=== PATIENT | male | born 1935 | race Caucasian/White ===

== ENCOUNTER 2017-12-09 11:55 | Emergency (ER) | payer MEDICARE ==
[2017-12-09] MEDS ORDERED: Dexamethasone 4 mg/ml Vial ONE (13:34)
[2017-12-09] MEDS ORDERED: Acetaminophen 500 MG TAB ONE ×2 (13:34→13:35)
[2017-12-09 13:42] LABS: #Eosinphils 0.4 thou/uL (0.0-0.7); #Lymphocytes 1.7 thou/uL (1.20-3.40); #Monocytes 1.1 thou/uL (0.11-0.59); %Basophils 0.4 % (0.0-1.0); %Lymphocytes 14.9 % (21.0-51.0); %Monocytes 9.8 % (0.0-10.0); %Neutrophils 70.9 % (42.0-75.0); Hemoglobin 13.8 g/dL (14.0-18.0); Mean Corpuscular HGB CONC 33.6 g/dL (32.0-36.0); Mean Corpuscular Hemoglobin 32.3 pg (27.0-31.0); Mean Corpuscular Volume 96.3 fl (80.0-94.0); Mean Platelet Volume 8.7 fL (7.4-10.4); Platelet Count 149 thou/uL (130-400); RBC Distribution Width 12.1 % (11.5-14.5); Red Blood Cell (RBC) Count 4.26 mill/uL (4.70-6.10); White Blood Cell (WBC) Count 11.3 thou/uL (4.8-10.8)
[2017-12-09 14:09] LABS: Digoxin 0.97 ng/mL (0.8-2.0)
[2017-12-09 14:12] LABS: ALT (SGPT) 17 U/L (8-55); AST (SGOT) 25 U/L (5-34); Albumin 4.3 g/dL (3.4-4.8); Alkaline Phosphatase 38 U/L (40-150); Anion Gap 14 mmol/L (10-20); BUN (Urea Nitrogen) 16 mg/dL (8.4-25.7); Bilirubin, Total 1.1 mg/dL (0.2-1.2); Calc. Creatinine Clearance 0 mL/min (70-130); Calcium 9.3 mg/dL (7.8-10.44); Carbon Dioxide 24 mmol/L (23-31); Chloride 107 mmol/L (98-107); Estimated GFR-MDRD 43; Globulin 2.6 g/dL (2.4-3.5); Glucose 104 mg/dL (83-110); Lipase 37 U/L (8-78); Potassium 4.6 mmol/L (3.5-5.1); Protein, Total 6.9 g/dL (5.8-8.1); Sodium 140 mmol/L (136-145)
--- NOTE | 2017-12-09 14:14 | RAD ---
PA VIEW CHEST AP AND OBLIQUE VIEWS RIGHT RIBS: Date: 12/09/17 HISTORY: Fall right rib pain FINDINGS: Frontal view chest, as well as AP and oblique views of right ribs obtained. There is ectasia of the a leon. The lungs are well aerated. No evidence of pneumothorax seen. No evidence of right rib fracture s seen. No evidence of hemothorax seen. IMPRESSION: Unremarkable PA view chest, and AP and oblique views right ribs. POS: [facility]
--- NOTE | 2017-12-09 14:17 | RAD ---
3 VIEWS THORACIC SPINE: Date: 12/09/17 HISTORY: Back pain. FINDINGS: AP, lateral, and swimmer's view of thoracic spine obtained. The thoracic spine is unremarkable. No ev idence of acute thoracic spine fractures or bony lesions seen. Discs are well maintained. No evidence of laure or retrolisthesis seen. IMPRESSION: Normal 3 views thoracic spine. POS: [facility]
[2017-12-09 15:01] LABS: Bilirubin Negative (Negative); Blood, Urine Negative (Negative); Clarity CLOUDY (Clear); Glucose, Urine (Dipstick) Negative (Negative); Leukocyte Negative (Negative); Nitrite Negative (Negative); Protein, Urine (Dipstick) Negative (Neg-Trace); Specific Gravity, Urine 1.018 (1.002-1.036); Urobilinogen 0.2 mg/dL (0.2-1.0); pH, Urine 7.5 (5.0-9.0)
== END 2017-12-09 15:24 | disposition home or self-care (01) ==
LOC: ERS 11:55
DX: M54.6 Pain in thoracic spine (principal); I25.10 Atherosclerotic heart disease of native coronary artery without angina pectoris; I25.2 Old myocardial infarction; E78.5 Hyperlipidemia, unspecified; I10 Essential (primary) hypertension; Z79.899 Other long term (current) drug therapy
CPT/HCPCS: 36415; 72072; 80053; 80162; 81003; 83690; 85025; J1100

== ENCOUNTER 2018-05-12 14:03 | Emergency (ER) | payer MEDICARE ==
[~2018-05-12 14:03] MED LIST: ISOVUE-370 76%-LOCM 1 ML ONE; Iopamidol 370 76% 50 ML VIAL FS ONE
[2018-05-12 15:00] LABS: #Basophils 0.1 thou/uL (0.0-0.2); #Eosinphils 0.2 thou/uL (0.0-0.7); #Lymphocytes 1.6 thou/uL (1.20-3.40); #Monocytes 0.7 thou/uL (0.11-0.59); #Neutrophils 5.1 thou/uL (1.40-6.50); %Basophils 0.7 % (0.0-1.0); %Eosinophils 2.3 % (0.0-10.0); %Lymphocytes 21.4 % (21.0-51.0); %Monocytes 8.7 % (0.0-10.0); Hemoglobin 12.1 g/dL (14.0-18.0); Mean Corpuscular HGB CONC 34.8 g/dL (32.0-36.0); Mean Corpuscular Hemoglobin 32.4 pg (27.0-31.0); Mean Corpuscular Volume 93.1 fL (78.0-98.0); Mean Platelet Volume 8.4 fL (7.4-10.4); Platelet Count 124 thou/uL (130-400); Red Blood Cell (RBC) Count 3.74 mill/uL (4.70-6.10); White Blood Cell (WBC) Count 7.6 thou/uL (4.8-10.8)
[2018-05-12 15:24] LABS: ALT (SGPT) 13 U/L (8-55); AST (SGOT) 20 U/L (5-34); Albumin 3.6 g/dL (3.4-4.8); Alkaline Phosphatase 32 U/L (40-150); Anion Gap 11 mmol/L (10-20); BUN (Urea Nitrogen) 21 mg/dL (8.4-25.7); Bilirubin, Total 0.9 mg/dL (0.2-1.2); Calc. Creatinine Clearance 0 mL/min (70-130); Calcium 8.7 mg/dL (7.8-10.44); Carbon Dioxide 22 mmol/L (23-31); Chloride 109 mmol/L (98-107); Estimated GFR-MDRD 46; Globulin 2.2 g/dL (2.4-3.5); Glucose 116 mg/dL (83-110); Lipase 43 U/L (8-78); Potassium 4.1 mmol/L (3.5-5.1); Protein, Total 5.8 g/dL (5.8-8.1); Sodium 138 mmol/L (136-145)
--- NOTE | 2018-05-12 18:05 | CT ---
ABDOMEN CT WITH CONTRAST: PELVIS CT WITH CONTRAST: HISTORY: Abdominal pain. TECHNIQUE: An abdomen and pelvis is performed with IV contrast. Coronal reformatted images are submitted for in terpretation. FINDINGS: ABDOMEN: The lung bases are clear. Heart size is normal. No pericardial effusion. The visualized aorta has a normal caliber. No periaortic fat stranding. The portal vein is patent. The gallbladder is unremarkable. Symmetric attenuation of the psoas muscles. The liver, spleen, pancreas, and adrenal glands have appropriate enhancement. No gastrohepatic, retrocrural, or periportal lymphadenopathy. Symmetric enhancement of the kidneys. Bilaterally, no obstructive uropathy. There are scattered non specific, mildly enlarged mesenteric lymph nodes. No mass, free air, or free fluid. The gastric mucosa, the duodenum, and multiple normal caliber small bowel loops are noted. The ileoc ecal junction is normal. There is a normal caliber appendix. Contrast and fecal material throughout a nondistended, nondilated colon. PELVIS: No mass, lymphadenopathy, free air, or free fluid. The urinary bladder is unremarkable. There appears to be eccentric mass effect upon the posterior left aspect of the rectum, which may be due to fecal material. Nonemergent colonoscopy is recommended. There are no lytic or blastic lesions in the osseous structures. IMPRESSION: 1. No acute abnormality in the abdomen or pelvis. 2. Normal caliber appendix. 3. Mild mass effect and increased density in the left aspect of the rectum. Findings may be due to fecal material. Nonemergent colonoscopy is recommended. POS: [facility]
== END 2018-05-12 17:50 | disposition home or self-care (01) ==
LOC: ERS 14:03
DX: K59.00 Constipation, unspecified (principal); I25.10 Atherosclerotic heart disease of native coronary artery without angina pectoris; I25.2 Old myocardial infarction; E78.5 Hyperlipidemia, unspecified; I10 Essential (primary) hypertension; Z79.899 Other long term (current) drug therapy; Z79.82 Long term (current) use of aspirin
CPT/HCPCS: 36415; 74177; 80053; 83690; 85025; 96360

== ENCOUNTER 2019-10-21 12:40 | Outpatient (CLI) | payer MEDICARE ==
--- NOTE | 2019-10-21 13:31 | ULT ---
US Renal Bilateral STANDARD: 10/21/2019 12:00 AM CLINICAL HISTORY: Chronic kidney disease. STUDY: Renal ultrasound COMPARISON: None. FINDINGS: Right kidney: Echogenicity: Normal. Masses/cysts: None. Hydronephrosis: None. Calcifications: None. Length: 9.0 cm Left kidney: Echogenicity: Normal. Masses/cysts: None. Hydronephrosis: None. Calcifications: None. Length: 8.8 cm Limited visualization of the urinary bladder is unremarkable. Both ureteral jets were visualized. IMPRESSION: Unremarkable renal ultrasound
[2019-10-21 18:04] LABS: #Basophils 0.1 thou/uL (0.0-0.2); #Eosinphils 1.6 thou/uL (0.0-0.7); #Lymphocytes 2.3 thou/uL (1.20-3.40); #Monocytes 0.8 thou/uL (0.11-0.59); #Neutrophils 4.4 thou/uL (1.40-6.50); %Basophils 0.9 % (0.0-1.0); %Eosinophils 17.2 % (0.0-10.0); %Monocytes 8.6 % (0.0-10.0); %Neutrophils 48.4 % (42.0-75.0); Hemoglobin 12.4 g/dL (14.0-18.0); Mean Corpuscular HGB CONC 34.4 g/dL (32.0-36.0); Mean Corpuscular Hemoglobin 32.4 pg (27.0-31.0); Mean Platelet Volume 9.3 fL (7.4-10.4); Platelet Count 137 thou/uL (130-400); RBC Distribution Width 12.5 % (11.5-14.5); Red Blood Cell (RBC) Count 3.82 mill/uL (4.70-6.10); White Blood Cell (WBC) Count 9.1 thou/uL (4.8-10.8)
[2019-10-21 18:14] LABS: Anion Gap 10 mmol/L (10-20); BUN (Urea Nitrogen) 25 mg/dL (8.4-25.7); Calc. Creatinine Clearance 0 mL/min (70-130); Calcium 9.1 mg/dL (7.8-10.44); Carbon Dioxide 26 mmol/L (23-31); Chloride 110 mmol/L (98-107); Estimated GFR-MDRD 35; Glucose 120 mg/dL (83-110); Phosphorus 3.9 mg/dL (2.3-4.7); Potassium 4.6 mmol/L (3.5-5.1); Sodium 141 mmol/L (136-145)
== END 2019-10-21 12:41 | disposition home or self-care (01) ==
LOC: BICULT 12:40
PROVIDERS: ATTEND Internal Medicine Nephrology
DX: N18.4 Chronic kidney disease, stage 4 (severe) (principal)
CPT/HCPCS: 36415; 76770; 80048; 83970; 84100; 85025

== ENCOUNTER 2022-01-11 07:49 | Outpatient (CLI) | payer MEDICARE | END 2022-01-11 07:50 | disposition home or self-care (01) | LOC: SCSMRI 07:49 | PROVIDERS: ATTEND Family Medicine | DX: R41.3 Other amnesia (principal); R25.1 Tremor, unspecified; R41.82 Altered mental status, unspecified | CPT/HCPCS: 70551 ==

== ENCOUNTER 2022-02-16 18:08 | Observation (INO) | payer MEDICARE ==
[2022-02-16 19:21] LABS: #Basophils 0.1 thou/uL (0.0-0.2); #Eosinphils 0.3 thou/uL (0.0-0.7); #Lymphocytes 2.9 thou/uL (1.20-3.40); #Monocytes 0.7 thou/uL (0.11-0.59); #Neutrophils 4.2 thou/uL (1.40-6.50); %Basophils 1.5 % (0.0-1.0); %Eosinophils 3.5 % (0.0-10.0); %Lymphocytes 34.8 % (21.0-51.0); %Monocytes 8.8 % (0.0-10.0); %Neutrophils 51.3 % (42.0-75.0); Hemoglobin 13.5 g/dL (14.0-18.0); Mean Corpuscular HGB CONC 33.2 g/dL (32.0-36.0); Mean Corpuscular Hemoglobin 31.7 pg (27.0-31.0); Mean Corpuscular Volume 95.6 fL (78.0-98.0); Platelet Count 158 thou/uL (130-400); RBC Distribution Width 12.6 % (11.5-14.5); Red Blood Cell (RBC) Count 4.27 mill/uL (4.70-6.10); White Blood Cell (WBC) Count 8.2 thou/uL (4.8-10.8)
[2022-02-16 19:36] LABS: INR-International Normal Ratio 1.2
[2022-02-16 19:41] LABS: ALT (SGPT) 11 U/L (8-55); AST (SGOT) 20 U/L (5-34); Albumin 4.3 g/dL (3.4-4.8); Alkaline Phosphatase 41 U/L (40-110); Anion Gap 14 mmol/L (10-20); BUN (Urea Nitrogen) 20 mg/dL (8.4-25.7); Bilirubin, Total 0.6 mg/dL (0.2-1.2); Calc. Creatinine Clearance 0 mL/min (70-130); Calcium 9.1 mg/dL (7.8-10.44); Carbon Dioxide 24 mmol/L (23-31); Chloride 108 mmol/L (98-107); Globulin 2.4 g/dL (2.4-3.5); Glucose 88 mg/dL (83-110); Potassium 4.1 mmol/L (3.5-5.1); Protein, Total 6.7 g/dL (5.8-8.1); Sodium 142 mmol/L (136-145)
[2022-02-16 20:43] LABS: Magnesium 2.1 mg/dL (1.6-2.6)
[2022-02-16] MEDS ORDERED: Ondansetron PF 4 MG/2 ML Vial IVP PRN (22:10)
[2022-02-16] MEDS ORDERED: Acetaminophen 325 MG TAB PO PRN (22:10)
[2022-02-16] MEDS ORDERED: Ondansetron ODT 4 MG TAB PO PRN (22:10)
[2022-02-16] MEDS ORDERED: Acetaminophen 650 MG Suppository PR PRN (22:10)
[2022-02-16] MEDS ORDERED: hydrALAZINE 20 MG/ML VIAL SLOW IVP PRN (22:12)
[2022-02-16] MEDS ORDERED: Meclizine HCl 25 MG TAB PO PRN (22:15)
[2022-02-16] MEDS ORDERED: Electrolyte Replacement Protocol 1 EACH FS PRN (22:15)
[2022-02-17 03:07] VITALS: BMI 24.9
[2022-02-17 05:15] LABS: #Basophils 0.1 thou/uL (0.0-0.2); #Eosinphils 0.3 thou/uL (0.0-0.7); #Lymphocytes 2.3 thou/uL (1.20-3.40); #Monocytes 0.7 thou/uL (0.11-0.59); #Neutrophils 3.1 thou/uL (1.40-6.50); %Basophils 1.1 % (0.0-1.0); %Eosinophils 5.1 % (0.0-10.0); %Lymphocytes 35.7 % (21.0-51.0); %Monocytes 10.2 % (0.0-10.0); %Neutrophils 47.9 % (42.0-75.0); Hemoglobin 12.1 g/dL (14.0-18.0); Mean Corpuscular HGB CONC 33.6 g/dL (32.0-36.0); Mean Corpuscular Hemoglobin 32.1 pg (27.0-31.0); Mean Corpuscular Volume 95.5 fL (78.0-98.0); Mean Platelet Volume 8.4 fL (7.4-10.4); Platelet Count 147 thou/uL (130-400); RBC Distribution Width 12.5 % (11.5-14.5); Red Blood Cell (RBC) Count 3.77 mill/uL (4.70-6.10); White Blood Cell (WBC) Count 6.4 thou/uL (4.8-10.8)
[2022-02-17 05:37] LABS: Anion Gap 9 mmol/L (10-20); BUN (Urea Nitrogen) 20 mg/dL (8.4-25.7); Calc. Creatinine Clearance 39 mL/min (70-130); Calcium 8.3 mg/dL (7.8-10.44); Carbon Dioxide 23 mmol/L (23-31); Cardiac Risk 2.5 (Less than 4.5); Chloride 110 mmol/L (98-107); Cholesterol 113 mg/dl (< 200 Desired); Glucose 86 mg/dL (83-110); HDL Cholesterol 45 mg/dL (>60 Neg Risk); LDL Cholesterol, Calculated 52 mg/dL; Magnesium 2.1 mg/dL (1.6-2.6); Potassium 3.5 mmol/L (3.5-5.1); Sodium 138 mmol/L (136-145); Triglycerides 78 mg/dL (Less than 150)
[2022-02-17] MEDS ORDERED: Potassium Chloride 20 MEQ TAB PO SCH (06:00)
[2022-02-17] MEDS: Dronedarone HCl 400 MG TAB PO SCH ×2 (08:55→16:28)
[2022-02-17] MEDS ORDERED: Aspirin 81 mg Enteric Coated Tablet PO SCH (09:00)
[2022-02-17] MEDS ORDERED: Apixaban 5 MG TAB PO SCH (09:00)
[2022-02-17 09:14] LABS: Amphetamine Not Detected (NotDetected); Barbiturates Screen Not Detected (NotDetected); Benzodiazepine Screen Not Detected (NotDetected); Cocaine Metabolite Screen Not Detected (NotDetected); Methadone Not Detected (NotDetected); Methamphetamine Not Detected (NotDetected); Opiate Screen Not Detected (NotDetected); Oxycodone Screen Not Detected (NotDetected); Phencyclidine (PCP) Not Detected (NotDetected); THC/Cannabinoid Screen Detected (NotDetected); Tricyclic Screen Not Detected (NotDetected)
[2022-02-17 11:56] LABS: SARS-CoV-2 PCR by NAA Not Detected (NotDetected)
[2022-02-17 16:05] VITALS: TEMP 98
[2022-02-17 16:20] VITALS: BP 129/77
[2022-02-17] MEDS ORDERED: Atorvastatin Calcium 40 MG TAB PO SCH (21:00)
== END 2022-02-17 17:43 | disposition home or self-care (01) ==
LOC: ERS 18:08 → NEURO 20:25
PROVIDERS: ADMIT Internal Medicine; ATTEND Internal Medicine
DX: R42 Dizziness and giddiness (principal); R53.1 Weakness; H53.8 Other visual disturbances; I12.9 Hypertensive chronic kidney disease with stage 1 through stage 4 chronic kidney disease, or unspecified chronic kidney disease; N18.30 Chronic kidney disease, stage 3 unspecified; E78.2 Mixed hyperlipidemia; I48.0 Paroxysmal atrial fibrillation; I25.10 Atherosclerotic heart disease of native coronary artery without angina pectoris; I25.2 Old myocardial infarction; I65.21 Occlusion and stenosis of right carotid artery; E78.00 Pure hypercholesterolemia, unspecified; F12.10 Cannabis abuse, uncomplicated; Z79.01 Long term (current) use of anticoagulants; Z79.82 Long term (current) use of aspirin; Z79.899 Other long term (current) drug therapy; Z20.822 Contact with and (suspected) exposure to COVID-19
CPT/HCPCS: 70450; 70496; 70498; 70551; 80048; 80053; 80061; 80306; 82962; 83735 ×2; 84484; 85025 ×2; 85610; 85730; 93005; 97116; 97139; 99285; U0003; U0005; 36415; 36416; G0378